=== PATIENT | male | born 1955 ===

== ENCOUNTER → 2023-09-27 09:02 | Outpatient (REF) | payer MEDICARE, SELFPAY | LOC: DHCBS HW 09:02 | PROVIDERS: ATTENDING PHYSICIAN Internal Medicine Cardiovascular Disease; FAMILY PHYSICIAN Family Medicine | DX: I42.9 Cardiomyopathy, unspecified (principal) | CPT/HCPCS: 93306 ==

== ENCOUNTER → 2024-10-19 13:41 | Outpatient (REF) | payer MEDICARE, SELFPAY | LOC: HWRCS 13:41 | PROVIDERS: ATTENDING PHYSICIAN Internal Medicine Cardiovascular Disease; FAMILY PHYSICIAN Family Medicine | DX: I42.0 Dilated cardiomyopathy (principal) | CPT/HCPCS: 93306 ==

== ENCOUNTER → 2025-04-30 19:06 | Outpatient (REF) | payer MEDICARE, SELFPAY | LOC: MRI 3T 19:06 | PROVIDERS: ATTENDING PHYSICIAN Physician Assistant; FAMILY PHYSICIAN Family Medicine | DX: Q61.2 Polycystic kidney, adult type (principal); I10 Essential (primary) hypertension; Q44.6 Cystic disease of liver | CPT/HCPCS: 74181 ==

== ENCOUNTER → 2025-08-08 06:35 | Outpatient (REF) | payer MEDICARE, SELFPAY | LOC: MRI 3T 06:35 | PROVIDERS: ATTENDING PHYSICIAN Specialist; FAMILY PHYSICIAN Family Medicine | DX: M25.562 Pain in left knee (principal); M17.12 Unilateral primary osteoarthritis, left knee | CPT/HCPCS: 73721 ==